=== PATIENT | female | born 1950 | race Caucasian/White ===

== ENCOUNTER → 2021-10-27 10:55 | Outpatient (BNVA) | payer OTHER, SELFPAY | PROVIDERS: Family Provider Nurse Practitioner Family; PCP Nurse Practitioner Family; Visit Provider Nurse Practitioner | DX: J01.40 Acute pansinusitis, unspecified (principal); Z20.822 Contact with and (suspected) exposure to COVID-19 | CPT/HCPCS: 87635 ==

== ENCOUNTER 2025-01-09 11:28 | Emergency (ER) | payer MEDICARE, SELFPAY ==
--- NOTE | 2025-01-09 11:29 | USR_ITS ---
PROCEDURE INFORMATION: Exam: US Duplex Left Lower Extremity Veins, Limited Exam date and time: 01/09/2025 12:28 PM Age: 74 years old Clinical indication: Pain; Leg, lower; Left; Additional info: Leg pain TECHNIQUE: Imaging protocol: Real-time duplex ultrasound of the left extremity with 2-D murcia scale, color Doppler flow and spectral waveform analysis including responses to compression and other maneuvers (when performed) with image documentation. Limited exam focused on the left lower extremity veins. COMPARISON: No relevant prior studies available. FINDINGS: Left deep veins: Unremarkable. The common femoral, femoral, proximal profunda femoral, popliteal, posterior tibial and peroneal veins are patent without thrombus. Normal compressibility, augmentation response and Doppler waveforms. Superficial veins: Greater saphenous vein at the saphenofemoral junction is patent without thrombus. Soft tissues: Unremarkable. US/CV venous duplex [facility] [id number] IMPRESSION: No sonographic evidence of deep vein thrombosis.
[2025-01-09 11:45] VITALS: BP 192/114; PULSE 71; RESP 16; TEMP 36.6; O2SAT 97; BMI 40.5
--- NOTE | 2025-01-09 11:45 | ED_ITS ---
HPI - General Adult 2 General: Chief complaint: Extremity Problem,Nontraumatic Stated complaint: redness on left leg Time Seen by Provider: 01/09/25 11:29 Source: patient Mode of arrival: ambulatory Limitations: no limitations History of Present Illness: 74-year-old female who states she woke u p this morning she is having left leg swelling all some slight redness to her leg she denies any warmth to touch she denies any fever she denies any pain. She is seen in urgent care and was sent here for DVT rule out. She denies any chest pain shortness of breath Associated symptoms: Deny chest pain, dyspnea, headache(s), nausea, rash or vomiting Related Data Home Medications ?Medication ?Instructions ?Recorded ?Confirmed levothyroxine 50 mcg capsule 50 mcg PO DAILY 08/11/20 01/09/25 pantoprazole 40 mg tablet,delayed 40 mg PO DAILY 08/1101/09/25 release (Protonix) hydrochlorothiazide 25 mg tablet 25 mg PO DAILY 01/09/25 Allergies Allergy/AdvReac Type Severity Reaction Status Date / Time aspirin Allergy RASH Verified 01/09/25 10:15 Penicillins Allergy RASH Verified 01/09/25 10:15 Review of Systems 2 Const: Denies: fever(s), chills, body aches or change in appetite ENMT: Denies: throat pain or dental pain Card: Denies: chest pain Resp: Denies: dyspnea GI: Denies: abdominal pain, nausea, vomiting or diarrhea Musc: Reports: extremity swelling; Denies: neck pain or back pain Skin/Breast: Denies: rash Neuro: Denies: headache(s) [facility] ED 2 PFSH: Social History Smoking and tobacco/nicotine status: never used tobacco/nicotine Physical Exam 2 Const: COMMON NORMALS: no acute distress, patient oriented x3 and healthy appearing HENMT: COMMON NORMALS: normocephalic and atraumatic HEAD & SCALP: n ormocephalic and atraumatic Eye: COMMON NORMALS: conjunctivae normal CONJUNCTIVA: Yes conjunctivae normal Neck/C-Spine: COMMON NORMALS: full ROM and supple Chest: COMMONS NORMALS: normal inspection of the chest Resp: COMMON NORMALS: normal respiratory effort Cardio: COMMON NORMALS: regular rate and regular rhythm RATE: regular rate RHYTHM: regular rhythm Extremity: COMMON NORMALS: full ROM NARRATIVE EXTREMITY EXAM: Slight erythema to left lower leg no warmth to touch distal pulses intact some mild swelling no deformities Neuro: COMMON NORMALS: patient oriented x3, moves all extremities and no focal motor deficits Psych: COMMON NORMALS: mental status grossly normal, Normal thought process present and cooperative THOUGHT PROCESS: Normal thought process present Skin: COMMON NORMALS: no rashes or lesions noted and no wounds GENERAL SKIN EXAM: no rashes or lesions noted Course 2 Vital Signs: Vital signs: Vital Signs Temperature 97.8 F 01/09/25 11:45 Pulse Rate 71 01/09/25 11:45 Respiratory Rate 16 01/09/25 11:45 Blood Pressure 192/114 01/09/25 11:45 Pulse Oximetry 97 01/09/25 11:45 Oxygen Delivery Me thod Room Air 01/09/25 11:45 MDM - General Adult Medical Decision Making Patient presents here with swelling left lower leg she has no signs of cellulitis inflammatory markers negative ultrasound showed no signs of DVT does have a little bit of possible dependent edema she is to elevate her leg use compressions follow-up with PCP return if worsening she understands agrees to plan Medical Records I reviewed the patient's medical records. Lab Data I reviewed the patient's lab results. 01/09/25 11:57 Laboratory Results WBC 7.37 10^3/uL (3.29-11.43) 01/09/25 11:57 RBC 5.06 10^6/uL (3.85-5.65) 01/09/25 11:57 Hgb 14.70 g/dL (11.27-16.99) 01/09/25 11:57 Hct 48.3 % (36-47) H 01/09/25 11:57 MCV 95.5 fl (85-98) 01/09/25 11:57 MCH 29.1 pg (27-33) 01/09/25 11:57 MCHC 30.4 g/dL (30-55) 01/09/25 11:57 RDW 13.8 % (12.1-15.1) 01/09/25 11:57 Plt Count 196 10^3/cmm (157-399) 01/09/25 11:57 MPV 10.5 fL (7.4-10.4) H 01/09/25 11:57 Neut % (Auto) 56.9 % 01/09/25 11:57 Lymph % (Auto) 30.7 % 01/09/25 11:57 [place] % (Auto) 10.2 % 01/09/25 11:57 Eos % (Auto) 1.1 % 01/09/25 11:57 Baso % (Auto) 0.7 % 01/09/25 11:57 Neut # (Auto) 4.20 10^3/uL (1.8-7.7) 01/09/25 11:57 Lymph # (Auto) 2.3 10^3/uL (0.8-4.8) 01/09/25 11:57 [place] # (Auto) 0.8 10^3/uL (0.2-0.9) 01/09/25 11:57 Eos # (Auto) 0.1 10^3/uL (0.0-0.8) 01/09/25 11:57 Baso # (Auto) 0.1 10^3/uL (0.0-0.1) 01/09/25 11:57 Nucleated RBC % (auto) 0 % 01/09/25 11:57 Nucleated RBCs # 0.0 /100WBC 01/09/25 11:57 ESR 3 mm/hr (0-15) 01/09/25 11:57 All radiology interpretation(s) finalized by discharge Discharge Plan Discharge Patient Disposition: Home Clinical Impression: Left leg swelling Condition: Stable Prescriptions: No Action pantoprazole [Protonix] 40 mg tablet,delayed release (DR/EC) 40 mg PO DAILY levothyroxine 50 mcg capsule 50 mcg PO DAILY hydrochlorothiazide 25 mg tablet 25 mg PO DAILY Discharge Orders: Discharge ED (Routine); Ordered 01/09/25 Ordered By: Antonieta Gupta Referrals: Toby Rosales FNP [Primary Care Provider] - Discharge Diet: Advance as tolerated Discharge Activity: Resume usual activity Patient Instructions: Leg Edema (ED) Print Language: Portuguese Coding Level of Care Code ED [employer] Clerk for Fortino Brenner
[2025-01-09 12:02] LABS: Basophils # 0.1 10^3/uL (0.0-0.1); Basophils % 0.7 %; Eosinophils # 0.1 10^3/uL (0.0-0.8); Eosinophils % 1.1 %; Hematocrit 48.3 % (36-47); Lymphocytes # 2.3 10^3/uL (0.8-4.8); Lymphocytes % 30.7 %; Mean Corpuscular HGB Conc 30.4 g/dL (30-55); Mean Corpuscular Hemoglobin 29.1 pg (27-33); Mean Corpuscular Volume 95.5 fl (85-98); Mean Platelet Volume 10.5 fL (7.4-10.4); Monocytes # 0.8 10^3/uL (0.2-0.9); Monocytes % 10.2 %; Neutrophils % 56.9 %; Nucleated Red Blood Cells % 0 %; Platelet Count 196 10^3/cmm (157-399); Red Blood Count 5.06 10^6/uL (3.85-5.65); Red Cell Distribution Width 13.8 % (12.1-15.1); White Blood Count 7.37 10^3/uL (3.29-11.43)
[2025-01-09 12:04] LABS: Erythrocyte Sedimentation Rate 3 mm/hr (0-15)
[2025-01-09 13:00] VITALS: BP 184/85; PULSE 64; O2SAT 95
== END 2025-01-09 13:00 | disposition home or self-care (01) ==
PROVIDERS: Emergency Provider Emergency Medicine; Family Provider Nurse Practitioner Family; PCP Nurse Practitioner Family
DX: R60.0 Localized edema (principal); M79.605 Pain in left leg
CPT/HCPCS: 85025; 85651; 93971; 99284